=== PATIENT | male | born 1940 | race Caucasian/White ===

== ENCOUNTER 2017-04-03 13:59 | Emergency (ER) | payer OTHER ==
[~2017-04-03] VITALS: Ht 175.3 cm; Wt 68.0 kg
[~2017-04-03 13:59] MED LIST: ARICEPT10 M1 PO; FLOMAX0.4 MG; LISINOPRIL-HCT1 EAC1 PO; METHADONE HCL5 MG PO; MOBIC15 MG PO; MULTIVITAMINS PO; NEURONTIN600 MG PO; NORCO 5-325 TA1 EACH; NORCO 5-325 TA1 EACH PO; POTASSIUM GLUCO99 M1 PO; PROTONIX40 M1; TIMOLOL MA0.5 %/5 M2 OPHTHALMIC; TYLENOL EX-STR500 M2 PO; XALATAN2.5 ML OPHTHALMIC; ZOCOR20 MG; ZOLOFT50 MG
[2017-04-03] MEDS ORDERED: SENOKOT-S1 TA1 PO (14:29)
[2017-04-03] MEDS ORDERED: OXYCODONE HCL15 MG PO (14:30)
[2017-04-03] MEDS ORDERED: CARDURA4 MG PO (14:30)
[2017-04-03] MEDS ORDERED: KEFLEX500 MG PO (15:02)
== END 2017-04-03 15:02 | disposition home or self-care (01) ==
LOC: ER 13:59
DX: S91.205A Unspecified open wound of left lesser toe(s) with damage to nail, initial encounter (principal); F03.90 Unspecified dementia, unspecified severity, without behavioral disturbance, psychotic disturbance, mood disturbance, and anxiety; H40.9 Unspecified glaucoma; F17.210 Nicotine dependence, cigarettes, uncomplicated; F10.99 Alcohol use, unspecified with unspecified alcohol-induced disorder; Z86.73 Personal history of transient ischemic attack (TIA), and cerebral infarction without residual deficits; Z98.890 Other specified postprocedural states; W23.0XXA Caught, crushed, jammed, or pinched between moving objects, initial encounter; Y93.89 Activity, other specified; Y92.89 Other specified places as the place of occurrence of the external cause; Y99.8 Other external cause status

== ENCOUNTER 2020-09-01 15:40 | Emergency (ER) | payer OTHER ==
[~2020-09-01] VITALS: Ht 172.7 cm; Wt 68.0 kg
[~2020-09-01 15:40] MED LIST changes: +CARDURA4 MG PO; +KEFLEX500 MG PO; +OXYCODONE HCL15 MG PO; +SENOKOT-S1 TA1 PO
[2020-09-01 17:02] VITALS: BP 103/51
== END 2020-09-01 17:02 ==
LOC: ER 15:40
DX: J44.9 Chronic obstructive pulmonary disease, unspecified (principal); R41.82 Altered mental status, unspecified; I10 Essential (primary) hypertension; E78.5 Hyperlipidemia, unspecified; F17.210 Nicotine dependence, cigarettes, uncomplicated; Z90.89 Acquired absence of other organs; Z79.899 Other long term (current) drug therapy

== ENCOUNTER 2020-09-30 10:29 | Inpatient (IN) | payer OTHER ==
[~2020-09-30] VITALS: Ht 175.3 cm; Wt 71.7 kg
[2020-09-30 10:31] VITALS: BP 147/66
[2020-09-30] MEDS ORDERED: NORVASC 2.5 MG2.5 M1 PO (10:36)
[2020-09-30] MEDS ORDERED: FAMOTIDINE 20 M20 MG PO (10:36)
[2020-09-30] MEDS ORDERED: EFFER-K 20 MEQ20 ME1 PO (10:38)
[2020-09-30] MEDS ORDERED: OXYBUTYNIN 5 MG5 M2 PO (10:38)
[2020-09-30] MEDS ORDERED: ACETAMINOPHEN500 M1 PO (10:41)
[2020-09-30 10:54] LABS: URINE BILIRUBIN NEGATIVE (Negative); URINE BLOOD 1+ (Negative); URINE CLARITY CLEAR; URINE COLOR YELLOW; URINE GLUCOSE-RANDOM* NEGATIVE (Negative); URINE KETONES NEGATIVE (Negative); URINE LEUKOCYTES-REFLEX 3+ (Negative); URINE NITRITE-REFLEX POSITIVE (Negative); URINE PROTEIN (DIPSTICK) NEGATIVE (Negative); URINE SPECIFIC GRAVITY 1.015 (1.005-1.035)
[2020-09-30 11:05] LABS: CASTS None Seen /LPF (None Seen); SQUAMOUS 0-3 Few /LPF (0-3); URINE RBC 0-2 Rare /HPF (0-2); URINE WBC-REFLEX >25 Many /HPF (0-5)
[2020-09-30 11:06] LABS: BACTERIA-REFLEX >30 Many /HPF (None Seen); CRYSTALS None Seen /LPF (None Seen); WBC CLUMPS Many (None Seen)
[2020-09-30 11:27] LABS: ABSOLUTE NEUTROPHILS 5.6 thou/uL (1.4-8.2); BASOPHILS 1.2 % (0.0-2.0); EOSINOPHILS 2.9 % (0.0-3.0); HEMATOCRIT 35.3 % (42.0-52.0); LYMPHOCYTES 10.6 % (24.0-44.0); MCH 33.8 pg (26.0-34.0); MCV 99.5 fL (80.0-100.0); MONOCYTES 12.8 % (1.0-8.0); POLYS 72.5 % (36.0-66.0); RBC 3.55 mil/uL (4.50-6.00); RDW 12.8 % (10.5-14.5); WBC 7.7 thou/uL (4.0-11.0)
[2020-09-30 11:40] LABS: APTT 26.8 Seconds (24.5-32.8); PROTIME 10.7 Seconds (9.3-11.4)
[2020-09-30 11:43] LABS: CALCIUM 9.5 mg/dL (8.5-10.1); POTASSIUM 4.2 mmol/L (3.5-5.1)
[2020-09-30 11:47] LABS: ALBUMIN 3.2 g/dL (3.4-5.0); TOTAL BILIRUBIN 0.7 mg/dL (0.2-1.0); TOTAL PROTEIN 6.7 g/dL (6.4-8.2)
[2020-09-30 12:13] LABS: PLATELET COUNT 109 thou/uL (150-400)
[2020-09-30 13:11] VITALS: BP 147/66
[2020-09-30 15:41] LABS: CHOLESTEROL 129 mg/dL (<200); HDL CHOLESTEROL 37 mg/dL (>40); LDL CHOLESTEROL 73 mg/dL (<100); TC:HDL 3.5 Ratio (Not establshd); TRIGLYCERIDE 95 mg/dL (<150); VLDL 19 mg/dL (<40)
[2020-09-30 15:42] VITALS: BP 118/47
[2020-09-30 15:43] LABS: SERUM ASSESSMENT Clear
[2020-09-30 16:43] LABS: FOLIC ACID 16.7 ng/mL (8.6-58.9)
[2020-09-30 17:00] VITALS: BP 164/75
--- NOTE | 2020-09-30 17:36 | NUR ---
ASSUMED CARE OF PT OF PT ON ARRIVAL TO UNIT AT APPROX 1600. PT ALERT AND ORIENTED TO SITUATION, FORGETFUL, PRESENTS IN NO DISTRESS. WANTING TO GO HOME AND ASKING WHY HE HAS TO BE HERE. OTHERWISE LARGELY COOPERATIVE. IVF INFUSING PER ORDER. WANTING TO EAT. INSTRUCTED ON FALL PRECAUTIONS. WCM.
[2020-09-30 20:09] VITALS: BP 144/74
[2020-10-01 04:47] LABS: HEMATOCRIT 32.7 % (42.0-52.0); HEMOGLOBIN 11.1 gm/dL (14.0-18.0); MCH 34.2 pg (26.0-34.0); MCV 100.5 fL (80.0-100.0); RBC 3.25 mil/uL (4.50-6.00); WBC 7.2 thou/uL (4.0-11.0)
[2020-10-01 04:51] LABS: CALCIUM 8.8 mg/dL (8.5-10.1); CREATININE 0.8 mg/dL (0.7-1.3); POTASSIUM 4.3 mmol/L (3.5-5.1)
--- NOTE | 2020-10-01 05:50 | NUR ---
Pt. rested quietly at intervals during the night when checked on during frequent rounds. He has been incontinent of urine. Pt. offers no c/o pain. Bed alarm is on.
[2020-10-01 08:00] VITALS: BP 143/57
--- NOTE | 2020-10-01 14:13 | EKG ---
[address] [address] ELECTROCARDIOGRAM REPORT Name: JACOB HARRINGTON Room #: 454- ADM IN M.R.#: [id number] Admission: 09/30/20 Attend Phys: Willie Amato MD Discharge: Date of : 36 Report #: [id number] [facility] Test Date: 2020-10-01 Test Time: 13:41:06 Pat Name: JACOB HARRINGTON Department: Room: 454 Gender: M Missile Technician: yessica : 1940 Requested By: Anna Marie Figueroa Order Number: [id number] MD: Jh Breaux Measurements Intervals [place] Rate: 88 P: 54 SD: 147 QRS: 30 QRSD: 96 T: 25 QT: 365 QTc: 442 Interpretive Statements Sinus rhythm Low voltage, extremity leads Compared to ECG 05/11/2013 13:03:20 Low QRS voltage now present Electronically Signed On 10-01-2020 14:12:52 KNUCKLER by Jh Breaux [email or web address] <ELECTRONICALLY SIGNED> By: Jh Breaux MD 10/01/20 1412 1341 134 Jh Breaux MD /VALERIE
[2020-10-01 15:49] VITALS: BP 152/72
--- NOTE | 2020-10-01 19:21 | NUR ---
Assumed pt care at 7am.Assessment completed.vss.Pt in bed very anxious about dc to [facility] today.Dr Figueroa here,order noted.Ct abdomen with oral contrast done today.Dr Figueroa notified about result and she wanted pt stay overnight for iv antibiotic.Pt dtr here,updates given.Later this evening,pt called this rn asking for his cell phone.Rn called pt's dtr but told it might be at burns.Faraz for pt,the phone was found in his room by staff at burns after making phone call. Pt and his dtr notified.CIWA protocol was cancelled after informing truck driver supervisor about transfer pt to another floor.Report off to noc rn.
[2020-10-01 20:00] VITALS: BP 148/55
--- NOTE | 2020-10-02 03:48 | NUR ---
Pt. rested quietly at intervals during the night when checked on during frequent rounds. He was incontinent of stool and dann care given. Pt. offers no c/o pain. Up to the bedside comode with assistance of one. Bed alarm is on.
[2020-10-02 04:57] LABS: BASOPHILS 0.7 % (0.0-2.0); EOSINOPHILS 3.5 % (0.0-3.0); LYMPHOCYTES 15.3 % (24.0-44.0); MCH 33.5 pg (26.0-34.0); MCHC 33.4 g/dL (28.0-37.0); MCV 100.2 fL (80.0-100.0); MONOCYTES 12.5 % (1.0-8.0); PLATELET COUNT 127 thou/uL (150-400); RBC 3.29 mil/uL (4.50-6.00); RDW 13.2 % (10.5-14.5); WBC 7.3 thou/uL (4.0-11.0)
[2020-10-02 05:11] LABS: CALCIUM 8.8 mg/dL (8.5-10.1); CREATININE 0.8 mg/dL (0.7-1.3); PHOSPHORUS 2.6 mg/dL (2.6-4.7); POTASSIUM 3.8 mmol/L (3.5-5.1)
--- NOTE | 2020-10-02 13:57 | NUR ---
ASSUMED PT CARE THIS AM. PT ALERT AND COOPERATIVE WITH STAFF. PT HAS BEEN INCONTINENT OF URINE THIS SHIFT, HAD A BM ON THE BEDSIDE COMMODE. PT TURNING SELF APPROPRIATELY. MEDS TAKEN WITHOUT COMPLAINT THIS AM. IV PATENT, FLUIDS INFUSING. PT WANTING TO TALK TO DR ABOUT DISCHARGE PLAN, DR MADE AWARE.
[2020-10-02 14:53] LABS: URINE BILIRUBIN NEGATIVE (Negative); URINE BLOOD TRACE (Negative); URINE CLARITY CLEAR; URINE COLOR YELLOW; URINE GLUCOSE-RANDOM* NEGATIVE (Negative); URINE KETONES 1+ (Negative); URINE LEUKOCYTES-REFLEX NEGATIVE (Negative); URINE NITRITE-REFLEX NEGATIVE (Negative); URINE PROTEIN (DIPSTICK) NEGATIVE (Negative); URINE SPECIFIC GRAVITY 1.015 (1.005-1.035); URINE UROBILINOGEN 0.2 E.U./dl (0.2-1.0)
[2020-10-02 15:38] VITALS: BP 154/79
[2020-10-02] MEDS ORDERED: FOLIC ACID1 MG PO (16:40)
[2020-10-02] MEDS ORDERED: VITAMIN B-1100 M2 PO (16:41)
[2020-10-02] MEDS ORDERED: KEFLEX500 M2 PO (16:41)
[2020-10-02] MEDS ORDERED: VITAMIN B-125000 MCG SUBLING (16:42)
== END 2020-10-02 18:01 | DRG 690 ==
LOC: ER 10:29 → 4W 12:33 → EROBS 12:33 → 4W 15:41
PROVIDERS: Emergency Medicine; Internal Medicine; ADMIT Hospitalist; ATTEND Hospitalist
DX: N30.91 Cystitis, unspecified with hematuria (principal); F03.90 Unspecified dementia, unspecified severity, without behavioral disturbance, psychotic disturbance, mood disturbance, and anxiety; E78.5 Hyperlipidemia, unspecified; I10 Essential (primary) hypertension; F17.210 Nicotine dependence, cigarettes, uncomplicated; D69.6 Thrombocytopenia, unspecified; N40.0 Benign prostatic hyperplasia without lower urinary tract symptoms; K21.9 Gastro-esophageal reflux disease without esophagitis; G89.29 Other chronic pain; F10.11 Alcohol abuse, in remission; G83.9 Paralytic syndrome, unspecified; E53.8 Deficiency of other specified B group vitamins; Z86.73 Personal history of transient ischemic attack (TIA), and cerebral infarction without residual deficits; Z79.899 Other long term (current) drug therapy; Z79.891 Long term (current) use of opiate analgesic
CPT/HCPCS: 10040